=== PATIENT | male | born 1995 | race Hispanic/Latino ===

== ENCOUNTER → 2024-12-12 08:44 | Outpatient (REF) | payer OTHER, SELFPAY ==
[2024-12-12 10:23] LABS: Hematocrit 42.9 % (39.0-52.0); Mean Corpuscular Hgb 30.8 pg (27.0-31.0); Mean Corpuscular Volume 88.1 fL (80.0-94.0); Mean Platelet Volume 11.6 fL (7.4-10.4); Platelet Count 226 10^3/uL (130-400); Red Blood Cell Count 4.87 10^6/uL (4.70-6.10); Red Cell Dist. Width 12.5 % (11.5-14.5)
[2024-12-12 10:58] LABS: ALT (SGPT) 48 U/L (0-50); AST (SGOT) 41 U/L (17-59); Albumin 4.6 g/dl (3.5-5.0); Alkaline Phosphatase 93 U/L (38-126); Blood Urea Nitrogen 12 mg/dl (9-20); Calcium 9.4 mg/dl (8.4-10.2); Carbon Dioxide 29 mmol/L (22-30); Chloride 104 mmol/L (98-107); Glucose 88 mg/dl (70-99); Potassium 4.2 mmol/L (3.5-5.1); Sodium 141 mmol/L (135-145); Total Bilirubin 1.2 mg/dl (0.2-1.3); Total Protein 7.9 g/dl (6.3-8.2); eGFR > 60.00
[2024-12-12 11:23] LABS: TSH Reflex To Free T4 2.07 uIU/ml (0.47-4.68)
[2024-12-13 10:57] LABS: H. pylori Breath Test Positive (Negative)
== END ==
LOC: CLINIC 08:44
PROVIDERS: ATTENDING PHYSICIAN Nurse Practitioner Adult Health
DX: K29.50 Unspecified chronic gastritis without bleeding (principal); G47.00 Insomnia, unspecified
CPT/HCPCS: 36415; 80053; 83013; 84443; 85027